=== PATIENT | male | born 1965 | race American Indian/Alaskan Native ===

== ENCOUNTER 2022-09-30 07:57 | Emergency (ER) | payer BC, OTHER ==
[2022-09-30] MEDS ORDERED: methylPREDNISolone Sodium Succinate 125 MG/2 ML SDV IM ONE (08:54)
[2022-09-30] MEDS ORDERED: Orphenadrine 60 MG/2 ML Inj IM ONE (08:54)
[2022-09-30] MEDS ORDERED: Acetaminophen/HYDROcodone 325-10 MG Tab PO ONE (08:54)
[2022-09-30 09:47] VITALS: BP 131/105; PULSE 80
== END 2022-09-30 09:37 | disposition home or self-care (01) ==
LOC: DL.ED 07:57
DX: M54.16 Radiculopathy, lumbar region (principal); E78.00 Pure hypercholesterolemia, unspecified; J45.909 Unspecified asthma, uncomplicated; K21.9 Gastro-esophageal reflux disease without esophagitis; Z87.891 Personal history of nicotine dependence; Z88.8 Allergy status to other drugs, medicaments and biological substances; Z88.5 Allergy status to narcotic agent; Z79.899 Other long term (current) drug therapy
CPT/HCPCS: 96372; 99283; 99284; A9270-GY; J2360; J2930

== ENCOUNTER 2023-03-23 05:12 | Day surgery (SDC) | payer BC, OTHER ==
[2023-03-23] MEDS ORDERED: fentaNYL 100 MCG/2 ML SDV IV ONE ×3 (05:13→06:35)
[2023-03-23] MEDS ORDERED: Midazolam 1 MG/ML 2 ML SDV IV ONE ×7 (05:13→06:42)
[2023-03-23] MEDS ORDERED: Dextrose 5%-0.45% NaCl 1,000 ML IV SCH (06:00)
[2023-03-23] MEDS ORDERED: fentaNYL 100 MCG/2 ML SDV ONE (06:05)
[2023-03-23] MEDS ORDERED: Midazolam 1 MG/ML 2 ML SDV ONE (06:05)
[2023-03-23 07:57] VITALS: BP 113/70; PULSE 68
== END 2023-03-23 08:01 | disposition home or self-care (01) ==
LOC: DL.ENDO 05:12
PROVIDERS: ATTEND Internal Medicine Gastroenterology
DX: Z12.11 Encounter for screening for malignant neoplasm of colon (principal); K64.8 Other hemorrhoids; K21.9 Gastro-esophageal reflux disease without esophagitis; E78.5 Hyperlipidemia, unspecified; I10 Essential (primary) hypertension; M54.50 Low back pain, unspecified; E66.09 Other obesity due to excess calories; Z88.5 Allergy status to narcotic agent
CPT/HCPCS: 45378; J2250; J3010; J7042

== ENCOUNTER 2024-03-30 01:53 | Emergency (ER) | payer BC ==
[2024-03-30] MEDS: Meclizine 12.5 MG Tab PO ONE (02:19)
[2024-03-30] MEDS: Acetaminophen/HYDROcodone 325-10 MG Tab PO ONE (02:19)
[2024-03-30 02:27] LABS: BASOPHILS PERCENT AUTO 0.2 % (0.0-1.0); EOSINOPHILS PERCENT AUTO 3.2 % (1.0-3.0); HEMATOCRIT 38.5 % (40.0-54.0); HEMOGLOBIN 12.3 g/dL (14.0-18.0); LYMPHOCYTES PERCENT AUTO 36.2 % (20.5-50.1); MEAN CORPUSCULAR HEMOGLOBIN 25.8 pg (27.0-34.0); MEAN CORPUSCULAR HGB CONC 31.9 g/dL (33.0-35.0); MEAN CORPUSCULAR VOLUME 80.7 fL (80-100); MONOCYTES PERCENT AUTO 10.6 % (2-8); NEUTROPHILS PERCENT AUTO 49.8 % (42.2-75.2); PLATELET COUNT,PLT 231 10^3/uL (150-450); RED BLOOD CELL COUNT 4.77 10^6/uL (4.6-6.2); WHITE BLOOD CELL COUNT,WBC 8.2 10^3/uL (5.0-10.0)
[2024-03-30 02:36] VITALS: BP 142/98; PULSE 83
[2024-03-30 02:41] LABS: ANION GAP 13.7 mEq/L (7-13); CREATININE 0.99 mg/dL (0.70-1.30); EST CRCL DRUG DOSING (CG) 88.18 mL/min; POTASSIUM,K 3.7 mmol/L (3.5-5.1)
[2024-03-30] MEDS: Triamcinolone Acetonide 40 MG/ML 1 ML SDV INJECT ONE (03:14)
== END 2024-03-30 03:16 | disposition home or self-care (01) ==
LOC: DL.ED 01:53
DX: M43.07 Spondylolysis, lumbosacral region (principal); M54.41 Lumbago with sciatica, right side; M54.42 Lumbago with sciatica, left side; E78.00 Pure hypercholesterolemia, unspecified; K21.9 Gastro-esophageal reflux disease without esophagitis; Z88.5 Allergy status to narcotic agent; Z88.8 Allergy status to other drugs, medicaments and biological substances; Z79.51 Long term (current) use of inhaled steroids; Z79.82 Long term (current) use of aspirin; Z79.899 Other long term (current) drug therapy; Z90.49 Acquired absence of other specified parts of digestive tract
CPT/HCPCS: 36415; 72100; 80048; 85025; 96372; 99284; A9270-GY; J3301

== ENCOUNTER 2024-12-16 12:13 | Emergency (ER) | payer BC ==
[2024-12-16 12:31] LABS: BASOPHILS PERCENT AUTO 0.5 % (0.0-1.0); EOSINOPHILS PERCENT AUTO 7.9 % (1.0-3.0); HEMATOCRIT 40.3 % (40.0-54.0); HEMOGLOBIN 13.7 g/dL (14.0-18.0); LYMPHOCYTES PERCENT AUTO 41.7 % (20.5-50.1); MEAN CORPUSCULAR HEMOGLOBIN 28.6 pg (27.0-34.0); MEAN CORPUSCULAR VOLUME 84.1 fL (80-100); MONOCYTES PERCENT AUTO 9.1 % (2-8); NEUTROPHILS PERCENT AUTO 40.8 % (42.2-75.2); PLATELET COUNT,PLT 237 10^3/uL (150-450); RED BLOOD CELL COUNT 4.79 10^6/uL (4.6-6.2); WHITE BLOOD CELL COUNT,WBC 6.4 10^3/uL (5.0-10.0)
[2024-12-16 12:41] VITALS: BP 152/91; PULSE 89
[2024-12-16 12:46] LABS: PROTHROMBIN TIME 10.3 SEC (9.0-12.0)
[2024-12-16 12:53] LABS: ALBUMIN 3.8 g/dL (3.4-5.0); ANION GAP 12.8 mEq/L (7-13); BILIRUBIN TOTAL 0.5 mg/dL (0.2-1.0); BUN/CREATININE RATIO 7.8 (No establ ref range); CALCIUM 8.8 mg/dL (8.5-10.1); CREATININE 1.03 mg/dL (0.70-1.30); EST CRCL DRUG DOSING (CG) 81.23 mL/min; POTASSIUM,K 3.8 mmol/L (3.5-5.1); PROTEIN TOTAL,TP 7.7 g/dL (6.4-8.2)
[2024-12-16] MEDS: Albuterol 6.7 GM Inhaler INH ONE (13:17)
[2024-12-16] MEDS: Dexamethasone 6 MG TABLET PO ONE (13:17)
== END 2024-12-16 13:26 | disposition home or self-care (01) ==
LOC: DL.ED 12:13
DX: J98.8 Other specified respiratory disorders (principal); Z90.49 Acquired absence of other specified parts of digestive tract; E78.00 Pure hypercholesterolemia, unspecified; J45.909 Unspecified asthma, uncomplicated; Z79.82 Long term (current) use of aspirin; Z79.899 Other long term (current) drug therapy; Z88.8 Allergy status to other drugs, medicaments and biological substances; Z88.5 Allergy status to narcotic agent
CPT/HCPCS: 71046; 80053; 83880; 84484; 85025; 85610; 87428; 93005; 93010; 99283; 99285; A9270; J8540

== ENCOUNTER 2025-06-20 11:40 | Emergency (ER) | payer BC, OTHER ==
[2025-06-20 11:56] VITALS: BP 140/84; PULSE 69
[2025-06-20 12:21] LABS: AMPHETAMINES,URINE NEGATIVE (NEGATIVE); BARBITURATES,URINE NEGATIVE (NEGATIVE); MDMA (ECSTASY), URINE NEGATIVE (NEGATIVE); METHAMPHETAMINES,URINE NEGATIVE (NEGATIVE); OPIATES,URINE NEGATIVE (NEGATIVE); OXYCODONE,URINE NEGATIVE (NEGATIVE); PHENCYCLIDINE,URINE NEGATIVE (NEGATIVE); TCA,URINE NEGATIVE (NEGATIVE)
== END 2025-06-20 13:36 | disposition home or self-care (01) ==
LOC: DL.ED 11:40
DX: T65.91XA Toxic effect of unspecified substance, accidental (unintentional), initial encounter (principal); K21.9 Gastro-esophageal reflux disease without esophagitis; E78.00 Pure hypercholesterolemia, unspecified; Z90.49 Acquired absence of other specified parts of digestive tract; Z88.5 Allergy status to narcotic agent; Z88.8 Allergy status to other drugs, medicaments and biological substances; Z79.82 Long term (current) use of aspirin; Z79.899 Other long term (current) drug therapy
CPT/HCPCS: 36415; 80305-QW; 80307; 99283; 99284